=== PATIENT | female | born 1960 | race Caucasian/White ===

== ENCOUNTER 2016-07-02 09:06 | Day surgery (SDC) | payer BC ==
[2016-07-02] MEDS ORDERED: DEXAMETHASONE PRESERVATIVE FREE 10MG/ML VIAL IV ONE (13:30)
[2016-07-02] MEDS ORDERED: BUPIVACAINE 0.5% W/EPI MPF 30 ML VIAL IVP ONE (13:30)
[2016-07-02] MEDS ORDERED: LIDOCAINE 1% W/EPI 1:200,000 MPF 30ML SQ ONE (13:30)
[2016-07-02] MEDS ORDERED: HYDROCODONE/APAP 7.5/325MG TABLET PO ONE (13:30)
[2016-07-02] MEDS ORDERED: FENTANYL PF 100MCG/2ML VIAL IV ONE (15:28)
[2016-07-02] MEDS ORDERED: MIDAZOLAM HCL 2MG/2ML VIAL IV ONE (15:28)
[2016-07-02] MEDS ORDERED: LIDOCAINE 2% MDV (20MG/ML) 20ML VIAL IV ONE (15:28)
[2016-07-02] MEDS ORDERED: PROPOFOL 10 MG/ML VIAL IV ONE (15:28)
--- NOTE | 2016-07-02 15:40 | Operative Note ---
PAIN SERVICE OPERATIVE REPORT DATE OF PROCEDURE: 07/02/2016. PREOPERATIVE DIAGNOSIS: CERVICAL SPONDYLOSIS WITHOUT MYELOPATHY, ICD10 CODE M47.816. PROCEDURE: Radiofrequency rhizotomy bilateral cervical facets 3-4, 4-5, and 5-6. SURGEON: Altaf Harris D.O. ANESTHESIA: Local sedation. ANESTHESIA PROVIDER: Kalin Chaney CRNA. INDICATIONS: This patient presents with neck pain. Examination shows tenderness in the cervical spine. Range of motion does cause pain to the neck with extension. Diagnostics show extensive spondylosis. A previous facet rhizotomy series resulted in up to 75 to 90 percent pain control. Due to the failure of all therapies and success of the facet rhizotomies in the past, she is here for repeat rhizotomy. DESCRIPTION OF PROCEDURE: Intravenous line, vital sign monitoring, and IV sedation. Prepped and draped with sterile technique. Under imaging, facet levels on at 3-4, 4-5, and 5-6 bilaterally were marked. Each one of these points on the skin was and infiltrated. A 22-gauge rhizotomy cannula was positioned. Stimulation trials were conducted. Rhizotomy burn was performed. Local with anti-inflammatory into the sites. Topical antibiotic and sterile dressings were applied. We will monitor and evaluate. Altaf Harris D.O. Date Time Job Number: [id number] cc: Dr[facility] Sriram Holman [facility], [place]
== END 2016-07-02 11:20 | disposition home or self-care (01) ==
LOC: SUR 09:06
PROVIDERS: ATTEND Pain Medicine Interventional Pain Medicine
DX: M47.816 Spondylosis without myelopathy or radiculopathy, lumbar region (principal); I10 Essential (primary) hypertension
CPT/HCPCS: 64633; 64634 ×2; 01936; J1100; J3010

== ENCOUNTER 2017-01-07 07:11 | Day surgery (SDC) | payer BC ==
[2017-01-07] MEDS ORDERED: DEXAMETHASONE PRESERVATIVE FREE 10MG/ML VIAL IV ONE (10:49)
[2017-01-07] MEDS ORDERED: LIDOCAINE 1% W/EPI 1:200,000 MPF 30ML SQ ONE (10:49)
[2017-01-07] MEDS ORDERED: BUPIVACAINE 0.5% W/EPI MPF 30 ML VIAL IVP ONE (10:49)
[2017-01-07] MEDS ORDERED: LIDOCAINE 2% MDV (20MG/ML) 20ML VIAL IV ONE (13:52)
[2017-01-07] MEDS ORDERED: FENTANYL PF 100MCG/2ML VIAL IV ONE (13:52)
[2017-01-07] MEDS ORDERED: MIDAZOLAM HCL 2MG/2ML VIAL IV ONE (13:52)
[2017-01-07] MEDS ORDERED: PROPOFOL 10 MG/ML VIAL IV ONE (13:52)
--- NOTE | 2017-01-07 15:15 | Operative Note - Ferro ---
DATE OF SURGERY: 01/07/17 PREOPERATIVE DIAGNOSIS: CERVICAL SPONDYLOSIS WITHOUT MYELOPATHY, ICD-10 CODE = M47.812. OPERATION: RADIOFREQUENCY RHIZOTOMY BILATERAL CERVICAL FACETS 3-4, 4-5, AND 5-6. SURGEON: JANI GUTIERREZ D.O. ANESTHESIA: LOCAL SEDATION. ANESTHESIA PROVIDER: SUE FORTUNE CRNA. INDICATION: This patient presents with pain, which is primary neck. Examination shows tenderness in the cervical spine. Range of motion does cause pain to the neck with extension. Diagnostics show multiple levels of spondylosis in a 5-6 disc. A facet series and previous rhizotomy 75% pain control for greater than one year. Due to the failure of all therapies and the success of the facet series, she is here for repeat rhizotomy. PROCEDURE: Intravenous line, vital sign monitoring, IV sedation, prepped, draped, sterile technique. Cervical facet levels in the area of pain were identified and marked 3-4, 4-5, and 5-6. Each one of these points on the skin infiltrated. A 20-gauge rhizotomy cannula positioned. Stimulation trials conducted. Rhizotomy burn performed. Local with anti-inflammatory into the sites. Topical antibiotics. Sterile dressing applied. We will monitor and evaluate. cc: Dr. Ariel Davis JOB NUMBER: [id number] MTDD
== END 2017-01-07 09:52 | disposition home or self-care (01) ==
LOC: SUR 07:11
PROVIDERS: ATTEND Pain Medicine Interventional Pain Medicine
DX: M47.812 Spondylosis without myelopathy or radiculopathy, cervical region (principal); I10 Essential (primary) hypertension
CPT/HCPCS: 64633; 64634 ×2; 01936; J1100; J3010

== ENCOUNTER 2018-06-02 06:32 | Day surgery (SDC) | payer BC ==
[2018-06-02] MEDS ORDERED: BUPIVACAINE 0.5% W/EPI MPF 30 ML VIAL IVP ONE (06:33)
[2018-06-02] MEDS ORDERED: DEXAMETHASONE PRESERVATIVE FREE 10MG/ML VIAL IV ONE (06:33)
[2018-06-02] MEDS ORDERED: LIDOCAINE 1% W/EPI 1:200,000 MPF 30ML SQ ONE (06:33)
[2018-06-02] MEDS ORDERED: FENTANYL PF 100MCG/2ML VIAL IV ONE (06:33)
[2018-06-02] MEDS ORDERED: PROPOFOL 10 MG/ML VIAL IV ONE (06:33)
[2018-06-02] MEDS ORDERED: LIDOCAINE 2% MDV (20MG/ML) 20ML VIAL IV ONE (06:33)
[2018-06-02] MEDS ORDERED: MIDAZOLAM HCL 2MG/2ML VIAL IV ONE (06:33)
--- NOTE | 2018-06-03 19:13 | Operative Note ---
DATE OF SURGERY: 06/02/2018. PREOPERATIVE DIAGNOSIS: CERVICAL SPONDYLOSIS WITHOUT MYELOPATHY, ICD-10 CODE = M47.812. SURGERY: RADIOFREQUENCY RHIZOTOMY BILATERAL CERVICAL FACETS 3-4, 4-5, AND 5-6. SURGEON: JANI GUTIERREZ D.O. ANESTHESIA: LOCAL SEDATION. ANESTHESIA PROVIDER: CASANDRA RAND. INDICATION: This patient presents with primary neck pain. Examination shows tenderness in the cervical spine. Range of motion does cause pain in the neck with extension. Diagnostic studies show diffuse and multilevel endplate spondylosis and disc abnormalities. Previous facet series with 75+% pain control. Due to the failure of therapy and success of the facet series, the patient presents for rhizotomy for more long-term relief. SURGERY: Intravenous line, vital sign monitoring, IV sedation, prepped, draped , sterile technique. Patient positioned prone. Sterile prep. Under imaging, using a posterior image, facets at 3-4, 4-5, and 5-6 were marked on the skin. Skin infiltrated maintaining sterility of the field and with guidance, a #20 gauge rhizotomy cannula was positioned at each. Stimulation trials conducted. Rhizotomy burn 80 degrees for 90 seconds. Local with anti-inflammatory into the sites. Topical antibiotics. Sterile dressing was applied. We will monitor and evaluate. The procedure was atraumatic, no unusual side effects or complications. cc: Dr. Ariel Davis JOB NUMBER: [id number] MTDD
== END 2018-06-02 09:01 | disposition home or self-care (01) ==
LOC: SUR 06:32
PROVIDERS: ATTEND Pain Medicine Interventional Pain Medicine
DX: M47.812 Spondylosis without myelopathy or radiculopathy, cervical region (principal); I10 Essential (primary) hypertension; K21.9 Gastro-esophageal reflux disease without esophagitis; G47.33 Obstructive sleep apnea (adult) (pediatric); Z72.0 Tobacco use
CPT/HCPCS: 64633; 64634 ×2; 01936; J1100; J3010

== ENCOUNTER 2018-11-03 06:55 | Day surgery (SDC) | payer BC ==
--- NOTE | 2018-11-03 06:25 | History and Physical - Ferro ---
CHIEF COMPLAINT/HISTORY OF CHIEF COMPLAINT: This patient presents with history of intractable lumbar radiculopathy. Due to the failure of therapy, a spinal cord stimulator trial was conducted on 09/28/18 with 75+% pain control. Due to the failure of therapy and the success of the trial, she presents today for implantation of a permanent system. PAST MEDICAL HISTORY: Chronic headaches, reflux esophagitis, and degenerative arthritis. PAST SURGICAL HISTORY: Hysterectomy, tubal ligation, and foot surgery. MEDICATIONS ON ADMISSION: List to be provided. ALLERGIES: PERCOCET. FAMILY/PSYCHOSOCIAL HISTORY: Social history - Smoking, social alcohol, and caffeine. Family history - Noncontributory. SYSTEMS REVIEW: The patient is appropriate in no acute distress. PHYSICAL EXAMINATION: Height and weight are not known. Vital signs are not available. HEENT: Within normal limits. LUNGS: Clear. HEART: Rapid and regular. ABDOMEN: Nontender. MUSCULOSKELETAL: Examination of the musculoskeletal system shows diffuse tenderness lumbar spine. Range of motion produces pain throughout the low back and extending into both legs, right greater than left. Currently no motor and sensory abnormalities although pain across multiple dermatomal distributions. Ambulation - No assistive device utilized. NEUROLOGIC: Cranial nerves are intact. IMPRESSION: LUMBAR RADICULOPATHY, ICD-10 CODE M54.16 AND M54.17. PLAN: The patient is here for an implanted spinal catheter and internal generator after a successful trial and the failure of other therapies. The procedure will be considered outpatient, although an overnight stay will be evaluated. JOB NUMBER: [id number] MTDD
[~2018-11-03 06:55] MED LIST: ACETAMINOPHEN 1,000 MG/100 ML BTL IVPB ONE; CEFAZOLIN 2 Gram 2 GM/50 ML BAG IVPB ONE; FAMOTIDINE 20MG TABLET PO ONE; MECLIZINE 25 MG TABLET PO ONE; METOCLOPRAMIDE 10 MG TABLET PO ONE
[2018-11-03] MEDS ORDERED: PROPOFOL 10 MG/ML VIAL IV ONE (06:56)
[2018-11-03] MEDS ORDERED: MIDAZOLAM HCL 2MG/2ML VIAL IV ONE (06:56)
[2018-11-03] MEDS ORDERED: LIDOCAINE 2% MDV (20MG/ML) 20ML VIAL IV ONE (06:56)
[2018-11-03] MEDS ORDERED: FENTANYL PF 100MCG/2ML VIAL IV ONE (06:56)
[2018-11-03] MEDS ORDERED: HYDROMORPHONE HCL 2 MG/ML VIAL IV ONE (06:56)
[2018-11-03] MEDS ORDERED: RINGERS SOLUTION,LACTATED 1,000 ML IV ONE ×2 (07:40→09:51)
[2018-11-03] MEDS ORDERED: BUPIVACAINE 0.5% W/EPI MPF 30 ML VIAL SQ ONE (09:07)
[2018-11-03] MEDS ORDERED: LIDOCAINE 1% W/EPI 1:100,000 MDV 20 ML VIAL SQ ONE (09:07)
[2018-11-03] MEDS ORDERED: CEFAZOLIN 0.5 G in 0.9 % SODIUM CHLORIDE 1000ML 500 ML IVP ONE (09:07)
[2018-11-03] MEDS ORDERED: HYDROCODONE/APAP 7.5/325MG TABLET PO PRN (11:00)
[2018-11-03] MEDS ORDERED: DIPHENHYDRAMINE HCL 25 MG CAPSULE PO PRN ×2 (11:00)
[2018-11-03] MEDS ORDERED: AL HYDROX/MAG HYDROX 30ML UD PO PRN (11:00)
[2018-11-03] MEDS ORDERED: HYDROMORPHONE HCL 2 MG/ML VIAL IM PRN ×2 (11:00)
[2018-11-03] MEDS ORDERED: TEMAZEPAM 15 MG CAPSULE PO PRN ×2 (11:00)
[2018-11-03] MEDS ORDERED: DIPHENHYDRAMINE HCL 50 MG/ML VIAL IVP PRN ×2 (11:00)
[2018-11-03] MEDS ORDERED: OXYCODONE/APAP 10MG-325MG TABLET PO PRN ×2 (11:00)
[2018-11-03] MEDS ORDERED: ACETAMINOPHEN 325 MG TAB PO PRN ×2 (11:00)
[2018-11-03] MEDS ORDERED: METOCLOPRAMIDE 10 MG TABLET PO PRN (11:00)
[2018-11-03] MEDS ORDERED: SENNOSIDES/DOCUSATE SODIUM UD CAPSULE PO PRN ×2 (11:00)
[2018-11-03] MEDS ORDERED: METOCLOPRAMIDE HCL 10 MG/2 ML VIAL IVP PRN (11:00)
[2018-11-03] MEDS ORDERED: RINGERS SOLUTION,LACTATED 1,000 ML IV SCH (11:00)
[2018-11-03] MEDS: HYDROCODONE/APAP 7.5/325MG TABLET PO PRN ×2 (16:37→20:58)
[2018-11-03] MEDS: CEFAZOLIN 2 Gram 2 GM/50 ML BAG IVPB SCH (16:38)
[2018-11-03] MEDS ORDERED: ZOLPIDEM TARTRATE 5 MG TABLET PO SCH (22:00)
[2018-11-04] MEDS: CEFAZOLIN 2 Gram 2 GM/50 ML BAG IVPB SCH ×2 (01:53→08:45)
[2018-11-04] MEDS: HYDROCODONE/APAP 7.5/325MG TABLET PO PRN ×3 (02:55→11:56)
[2018-11-04] MEDS ORDERED: PANTOPRAZOLE SODIUM 40 MG TABLET PO SCH (07:00)
[2018-11-04] MEDS ORDERED: LORATADINE 10 MG TABLET PO SCH (10:00)
[2018-11-04] MEDS ORDERED: HYDROCHLOROTHIAZIDE 25 MG TABLET PO SCH (10:00)
[2018-11-04] MEDS ORDERED: DULOXETINE HCL 30 MG CAPSULE.DR PO SCH (10:00)
--- NOTE | 2018-11-05 09:00 | Operative Note ---
DATE OF SURGERY: 11/03/2018 PREOPERATIVE DIAGNOSIS: Lumbar radiculopathy, ICD10 code M54.16 and M54.17. OPERATION: 1. Fluoroscopic-guided epidural access left T11-12, placement of spinal cord stimulator lead 1 [employer] Infinion 16, 6 electrodes positioned left T6. 2. Fluoroscopic-guided epidural access left T12-L1, placement of spinal cord stimulator lead 2 [employer] Infinion 16, 6 electrodes positioned right T6. 3. Complex programming of lead 1 over 20 minutes followed by complex programming of lead 2 over 20 minutes. 4. Incision and subcutaneous dissection and anchoring of lead 1 and lead 2 to supraspinous fascia with a [employer] locking anchor, nonabsorbable suture. 5. Incision and subcutaneous dissection and creation of subcutaneous pouch at left posterior gluteal margin for placement of generator identified as [employer] programmable rechargeable WaveWriter. 6. Tunneling between lead pouch and a generator pouch, placement of each lead into generator pouch, each lead interfaced with generator. 7. Closure of both incisions, Stratafix suture 2-0 fascia, 3-0 skin, Dermabond closure. A complex recovery room programming internal generator home use 2 stimulators 20 minutes. SURGEON: Altaf Harris DO ANESTHESIA: Local with sedation. ANESTHESIA PROVIDER: Kalin Chaney INDICATION: This patient presents with a history of intractable lumbar radiculopathy. Due to the failure of all therapies, a spinal cord stimulator trial was conducted with 75% plus pain control. Due to the failure of all therapies and the success of the trial, the patient presents today for implantation of permanent system. PROCEDURE: Intravenous line, vital sign monitoring, IV sedation by AnesthesiaKalin. Patient positioned prone. Sterile prep, sterile technique. Under imaging, from the left, the epidural interspace at 11-12 and 12-1 were marked, infiltrated with local. Using 2 curved access Epimed needles with loss of resistance, the space was accessed at each level. Atraumatic. No blood, no CSF. At 11-12, spinal cord stimulator lead 1, a [employer] Infinion 16, 6 electrodes positioned left of midline at T6. With the access at 12-1, same technique, spinal cord stimulator lead 2, [employer] Infinion 16, 6 electrodes positioned right at T6. Complex programming of lead 1 over 20 minutes followed by complex programming of lead 2 over 20 minutes resulting in complete pattern stimulation across the back and into the legs. Patient indicating we had all the areas of the pain. She was then given the option to implant the system and continue to program or remove. She opted to implant. The question was repeated with the same response. She was re-sedated and then the skin above and below both needles was infiltrated. Incision was made and subcutaneous dissection was conducted to supraspinous fascia. Fletcher removed and each lead was anchored to the supraspinous fascia with a [employer] locking anchor and nonabsorbable suture. At the left posterior gluteal margin, a site picked by the patient for the generator, skin infiltrated, incision made, and subcutaneous dissection was conducted to form a pouch of suitable size and depth for the generator, a [employer] programmable rechargeable. A tunneling tool was used to carry the leads into the generator pouch, and then each lead was interfaced to the generator. Antibiotic irrigation and Bovie for hemostasis. The generator placed into the pouch, leads placed in their own pouch, and then each incision was closed using Stratafix suture, 2-0 fascia, and 3-0 skin and then a Dermabond closure was used to approximate the edges of each wound. She was transferred to recovery room stable. No side effects from the procedure or sedation. When fully awake and alert, complex programming of the leads was then performed over 20 minutes reestablishing stimulation and pain control to all the appropriate areas. The patient was instructed in the use of the system, provided with information, error messaging, and then prepared for discharge. DISCHARGE INSTRUCTIONS: 1. The sites will remain clean and dry. No showering or bathing in any way that would disrupt dressings. If it happens, contact the clinic. 2. Standard medications resumed including the antibiotic Levaquin 500 mg once a day for 14 days. 3. The office will contact the patient in the next 12-24 hours to set up a time in 7-10 days for us to evaluate the sites. Until then, she is to keep her activities controlled. Limit bend, lift, push, pull. Although the instructions are no showering or bathing, she can shower but not sit in water or tub. All other instructions were provided with numbers to contact if problems given. She will be evaluated in the office. MOY
--- NOTE | 2018-11-05 18:24 | RADIOLOGY REPORT ---
STUDY: Spine 1 view. CLINICAL HISTORY: Spinal cord stimulator placement. TECHNIQUE: Single AP portable supine view of the spine is obtained including the majority of the thoracic spine and the [id number] lumbar spine. COMPARISON: Same-day intraoperative radiographs. FINDINGS: There is [id number] osteopenia. There is mild levoconvex curvature of the thoracic spine. No acute fracture. No lytic or blastic bone lesion. The thoracic pedicles are intact. Mild degenerative endplate changes are scattered throughout the visualized spine. A dual-lead interspinal stimulator is in place with leads appearing to enter the spinal canal near the T12 level. Lead tips project at the upper T6 level. The extraspinal portions of the leads extend inferiorly and leftward where they connect with a stimulator generator. IMPRESSION: A dual-lead interspinal stimulator in place with lead tips projecting at the upper T6 level. MTDD
== END 2018-11-04 12:04 | disposition home or self-care (01) ==
LOC: SUR 06:55 → MEDSURG 10:38 → SUR 11-04 12:04
PROVIDERS: ATTEND Pain Medicine Interventional Pain Medicine
DX: M54.16 Radiculopathy, lumbar region (principal); M54.17 Radiculopathy, lumbosacral region; I10 Essential (primary) hypertension; K21.9 Gastro-esophageal reflux disease without esophagitis; G47.33 Obstructive sleep apnea (adult) (pediatric)
CPT/HCPCS: 63650; 63685; 01936; 95972; 72020; J3490; J3010; J1170; J0690 ×2; C1820; C1883; J7030; J7120

== ENCOUNTER 2019-06-22 05:58 | Day surgery (SDC) | payer BC ==
[2019-06-22] MEDS ORDERED: LIDOCAINE 2% MDV (20MG/ML) 20ML VIAL IV ONE (05:59)
[2019-06-22] MEDS ORDERED: MIDAZOLAM HCL 2MG/2ML VIAL IV ONE (05:59)
[2019-06-22] MEDS ORDERED: PROPOFOL 10 MG/ML VIAL IV ONE (05:59)
[2019-06-22] MEDS ORDERED: FENTANYL PF 100MCG/2ML VIAL IV ONE (05:59)
[2019-06-22] MEDS ORDERED: METOCLOPRAMIDE 10 MG TABLET PO ONE (06:00)
[2019-06-22] MEDS ORDERED: FAMOTIDINE 20MG TABLET PO ONE (06:00)
[2019-06-22] MEDS ORDERED: SCOPOLAMINE 1 PATCH TDSY TD ONE (06:00)
[2019-06-22] MEDS ORDERED: RINGERS SOLUTION,LACTATED 1,000 ML IV ONE (06:46)
[2019-06-22] MEDS ORDERED: LIDOCAINE 1% W/EPI 1:100,000 MDV 20 ML VIAL SQ ONE (07:45)
[2019-06-22] MEDS ORDERED: BUPIVACAINE 0.5% W/EPI MPF 30 ML VIAL SQ ONE (07:46)
[2019-06-22] MEDS ORDERED: DEXAMETHASONE PRESERVATIVE FREE 10MG/ML VIAL SQ ONE (07:46)
[2019-06-22] MEDS ORDERED: HYDROCODONE/APAP 7.5/325MG TABLET PO ONE (08:22)
--- NOTE | 2019-06-22 08:29 | Operative Note - Ferro ---
DATE OF SURGERY: 06/22/2019 PREOPERATIVE DIAGNOSIS: CERVICAL SPONDYLOSIS WITHOUT MYELOPATHY, ICD-10 CODE M47.812. OPERATION: RADIOFREQUENCY RHIZOTOMY BILATERAL CERVICAL FACETS C4-C5 AND C5-C6. SURGEON: Altaf Harris D.O. ANESTHESIA: Local sedation. ANESTHESIA PROVIDER: Kalin Chaney CRNA INDICATION: This patient presents with primary neck pain. Examination of the cervical spine shows range of motion does cause pain in the neck with extension. Diagnostics showed diffuse spondylosis. Current pain level 0-10 is an 8. Previous facet series 75+% pain control. Due to the failure of all therapies and the success of previous facets as well as rhizotomies she is here for repeat rhizotomy. PROCEDURE: Intravenous line, vital sign monitoring, IV sedation, prepped and draped, sterile technique. Under imaging the cervical facets in the area of pain were identified and marked at C4-C5 and C5-C6. Each one of these levels on the skin infiltrated, maintaining sterile technique and under imaging a 20-gauge rhizotomy cannula was positioned. Stimulation trial was conducted. Rhizotomy burn performed along with antiinflammatory into the sites. Topical antibiotic, sterile dressing was applied. Will monitor and evaluate. [facility] [id number] [facility]
== END 2019-06-22 08:44 | disposition home or self-care (01) ==
LOC: SUR 05:58
PROVIDERS: ATTEND Pain Medicine Interventional Pain Medicine
DX: M47.812 Spondylosis without myelopathy or radiculopathy, cervical region (principal); I10 Essential (primary) hypertension; K21.9 Gastro-esophageal reflux disease without esophagitis; M79.7 Fibromyalgia; G47.33 Obstructive sleep apnea (adult) (pediatric); F17.210 Nicotine dependence, cigarettes, uncomplicated
CPT/HCPCS: J7120